=== PATIENT | male | born 1980 ===

== ENCOUNTER 2021-01-25 15:22 | Emergency (ER) | payer OTHER ==
[~2021-01-25] VITALS: Ht 185.4 cm; Wt 83.9 kg
[~2021-01-25 15:22] MED LIST: ONDA8 PO; OXYACE5T PO; TAMS.4ER PO
== END 2021-01-25 16:19 | disposition home or self-care (01) ==
LOC: ER 15:22
DX: S30.21XA Contusion of penis, initial encounter (principal); X58.XXXA Exposure to other specified factors, initial encounter
CPT/HCPCS: 99282